=== PATIENT | female | born 1945 | race Caucasian/White ===

== ENCOUNTER 2017-02-03 22:28 | Emergency (ER) | payer OTHER ==
[~2017-02-03 22:28] MED LIST: ASPIRIN81 MG PO; BUSPIRONE HCL15 MG PO; CALMOSEPTINE O3.5 GM TOP; COMBIVENT RESPIM4 GM INH; COUMADIN2 MG PO; FUROSEMIDE40 MG PO; IMDUR ER TAB 3030 MG PO; IMDUR ER TAB 6060 MG PO; ISOSORBIDE MONO30 MG PO; LEVOTHYROXINE75 MCG PO; LIPITOR TAB 2020 MG PO; LISINOPRIL5 MG PO; LORTAB 5-325 M1 EACH PO; MAPAP500 M1 PO; METOPROLOL TART25 MG PO; NITROSTAT 0.40.4 MG SL; POTASSIUM CHLO20 ME1 PO; PROAIR HFA8.5 GM INH; RANITIDINE HCL150 M1 PO; STOOL SOFTENER100 MG PO; SYMBICORT 80-41 INHA INH; VITAMIN B-121000 MC3 PO; VITAMIN D310000 UNI1 PO; WARFARIN SODIUM2 MG PO
[2017-02-04 01:19] LABS: HEMOGLOBIN 10.8 gm/dl (12.3-15.3); RED BLOOD COUNT 4.02 M/UL (4.00-5.10); WHITE BLOOD COUNT 9.5 K/UL (4.5-11.0)
== END 2017-02-04 05:20 | disposition short-term general hospital (02) ==
LOC: ER1 22:28
PROVIDERS: Physician Assistant
DX: L02.211 Cutaneous abscess of abdominal wall (principal); K80.20 Calculus of gallbladder without cholecystitis without obstruction; I25.10 Atherosclerotic heart disease of native coronary artery without angina pectoris; I48.91 Unspecified atrial fibrillation; E11.9 Type 2 diabetes mellitus without complications; I10 Essential (primary) hypertension; E03.9 Hypothyroidism, unspecified; Z87.891 Personal history of nicotine dependence; Z79.01 Long term (current) use of anticoagulants; Z79.899 Other long term (current) drug therapy
CPT/HCPCS: 36415; 80053; 83690; 85025; 85610; 85730; 86140; 87040; 96374; 96375; 99285; J2270; J2405; Q9962